=== PATIENT | male | born 1950 | race Caucasian/White ===

== ENCOUNTER 2022-03-19 23:09 | Outpatient (CLI) | payer MEDICARE, SELFPAY | END 2022-03-19 23:10 | disposition home or self-care (01) | LOC: AMB 03-21 11:58 | PROVIDERS: PCP Family Medicine; Visit Provider Family Medicine | DX: R11.2 Nausea with vomiting, unspecified (principal); R19.7 Diarrhea, unspecified | CPT/HCPCS: A0425; A0427 ==

== ENCOUNTER 2022-03-19 23:38 | Emergency (ER) | payer MEDICARE, SELFPAY ==
[2022-03-19 23:43] VITALS: BP 151/94; PULSE 60; RESP 16; TEMP 36.3; O2SAT 99; BMI 31.4
[2022-03-20] VITALS (8 sets, daily range): BP systolic 150–183; BP diastolic 84–94; PULSE 65–92; RESP 12–20; O2SAT 95–100
--- NOTE | 2022-03-20 00:09 | ED.NAVMDI ---
HPI - Nausea/Vomiting/Diarrhea General Chief complaint: Nausea/Vomiting Stated complaint: nausea/vomiting Time Seen by Provider: 03/20/22 00:00 History of Present Illness HPI Narrative: This was a challenging interview to try to sort out the symptoms. 72 year old man presenting with spouse. Apparently experienced an episode of lightheadedness yesterday evening. Sounds somewhat orthostatic on initial description. Asking then again later sounded to be while at rest and more like dizziness in that things were suddenly moving. Thing started up again today about 30 hours ago accompanied by vomiting and diarrhea though. Tonight then was contemplating getting up and coming in to the emergency department when while walking tipped off to his right. Ended up resting on the couch for EMS arrival. Says he is pretty lightheaded when goes to stand. No chest pain or shortness of breath. Further questioning later reveals however the course the day watching TV would just make him too dizzy. Closing eyes was better. History of smoking. Quit more than 15 years ago. Underlying history of diabetes. Related Data Home Medications Medication Instructions Recorded Confirmed atorvastatin 20 mg tablet 20 mg PO DAILY 03/19/22 03/19/22 levothyroxine 112 mcg tablet 112 mcg PO DAILY 03/19/22 03/19/22 metformin 500 mg tablet,extended 1,500 mg PO DAILY 03/19/22 03/19/22 release 24 hr Allergies Allergy/AdvReac Type Severity Reaction Status Date / Time metformin AdvReac Mild diarreha Verified 03/20/22 02:32 Review of Systems Status of ROS: Reports: 6 or more systems reviewed and unremarkable except as noted in History and below [facility] Medical History (Updated 03/20/22 @ 05:01 by Jesse Levi MD) DDD (degenerative disc disease) DJD (degenerative joint disease) External hemorrhoid Hypothyroidism Non-insulin dependent diabetes mellitus Surgical History History of back surgery History of right hip replacement History of tonsillectomy S/P appendectomy Social History Smoking Status: Former smoker Do you use any of these nicotine containing products: None Second hand tobacco smoke exposure: No How often do you have a drink containing alcohol: 2-3 times a week How many standard drinks containing alcohol do you have on a typical day: 3 or 4 AUDIT-C Alcohol total score: 4 Non-prescribed substance use: denies use service: No Exam Narrative: Exam Narrative: Pleasant. NAD. Head atraumatic. Breathing easily. Lungs are clear. Heart with regular rate and rhythm and without MRG. Abdomen overweight. soft. nt. CN 2-12 intact and no apparent sensory loss. Moving all extremities without difficulty and with good strength and well-perfused peripherally. No extremity edema. No nystagmus evident. rotational movement of the head with maybe mild reproduction of dizziness. Recheck with fairly accurate [id number]. Once up and going to the bathroom is demonstrating an ataxic gait somewhat broad-based. Apparently this is new. Says he feels a lot better though. Const: Vital Signs, click to edit/add: Vital Signs - 24 hr 03/19/22 23:43 03/20/22 00:00 03/20/22 00:30 Temperature 97.3 F L Pulse Rate [Left P ulse Oximeter] 60 65 73 Respiratory Rate 16 13 12 Blood Pressure [Ri ght Upper Arm] 151/94 H 150/91 H 160/84 H Pulse Oximetry 99 96 98 Oxygen Delivery Me thod Room Air Room Air Room Air 03/20/22 01:00 03/20/22 01:30 03/20/22 02:04 Temperature Pulse Rate [Left P ulse Oximeter] 82 86 92 Respiratory Rate 13 14 20 Blood Pressure [Ri ght Upper Arm] 169/86 H 163/90 H 180/88 H Pulse Oximetry 100 95 98 Oxygen Delivery Me thod Room Air Room Air Room Air 03/20/22 02:30 03/20/22 03:00 03/20/22 03:30 Temperature Pulse Rate [Left P ulse Oximeter] 89 87 82 Respiratory Rate 19 15 15 Blood Pressure [Ri ght Upper Arm] 183/93 H 162/94 H 165/92 H Pulse Oximetry 99 97 97 Oxygen Delivery Me thod Room Air Room Air Room Air Documenting provider has reviewed patient's vital signs: yes Course Vital Signs Vital signs: Initial Vital Signs Temperature 97.3 F L 03/19/22 23:43 Temperature Source Temporal Artery Scan 03/19/22 23:43 Pulse Rate 60 03/19/22 23:43 Respiratory Rate 16 02/04/23 23:43 Blood Pressure 151/94 H 03/19/22 23:43 Blood Pressure Mean 113 03/19/22 23:43 Blood Pressure Position Semi-Fowlers 03/19/22 23:43 Pulse Oximetry 99 03/19/22 23:43 Oxygen Delivery Method 03/19/22 23:43 Vital Signs Temperature 97.3 F L 03/19/22 23:43 Pulse Rate 60 03/19/22 23:43 Respiratory Rate 16 03/19/22 23:43 Blood Pressure 151/94 H 03/19/22 23:43 Pulse Oximetry 99 03/19/22 23:43 Oxygen Delivery Method 03/19/22 23:43 Temperature 97.3 F L 03/19/22 23:43 Pulse Rate 82 03/20/22 03:30 Respiratory Rate 15 03/20/22 03:30 Blood Pressure 165/92 H 03/20/22 03:30 Pulse Oximetry 97 03/20/22 03:30 Oxygen Delivery Method 03/20/22 03:30 MDM - Nausea/Vomiting/Diarrhea MDM Narrative Medical decision making narrative: IV initiated with vomiting symptoms with some diarrhea; the latter reassuring. Zofran as well. Still with some dizziness, ordered for Valium. After treatment, asymptomatic at rest but says that balance is off otherwise when ambulating to and from the bathroom. Somewhat ataxic or broad-based gait which apparently is new. Hints positive both directions. No nystagmus With this description of balance being off I do think it would be prudent to image with CT/CTA of head and neck as available at this time. I did review these images and and discussed them with Neurology. Overall reassuring though there was a question of spot of hypodensity in a location unrelated to symptoms. Perhaps more concerning is this ataxia. Recommendations for followup MRI brain, consider hospitalizaton only due to difficulty with ambulation. Mr. Marley mantains that he feels rather well now and and intends to go home. Dosed with ASA and to continue pending follow up MRI result. Will try to arrange imaging. Lab Data Attestation: I reviewed the patient's lab results. Labs: Lab Results 03/20/22 03/20/22 03/20/22 Range/Units 00:25 00:25 00:25 WBC 7.04 (4.50-11.00) K/uL RBC 4.58 (4.30-5.90) m/uL Hgb 14.3 (13.5-17.5) gm/dL Hct 41.8 (37.0-53.0) % MCV 91 (80-100) fL MCH 31 (26-34) pg MCHC 34 (32-36) gm/dL RDW Coeff of Jono 12.5 (11.5-15.5) % Plt Count 159 (140-440) K/uL Neut % (Auto) 81.9 H (42.0-72.0) % Lymph % (Auto) 11.1 L (20-44) % [place] % (Auto) 6.4 (0.0-11.0) % Eos % (Auto) 0.0 (0.0-7.0) % Baso % (Auto) 0.3 (0.0-3.0) % Neut # (Auto) 5.80 (1.7-7.0) K/uL Lymph # (Auto) 0.80 L (0.90-2.90) K/uL [place] # (Auto) 0.50 (0.00-0.90) K/UL Eos # (Auto) 0.00 (0.00-0.50) K/uL Baso # (Auto) 0.02 (0.00-0.30) K/uL Sodium 142 (135-149) mmol/L Potassium 4.2 (3.6-5.1) mmol/L Chloride 106 (96-114) mmol/L Carbon Dioxide 24 (20-32) mmol/L BUN 19 (7-30) mg/dL Creatinine 0.7 (0.5-1.5) mg/dL Estimated Creat Clear 70.07 Estimated GFR 97 ml/min Glucose 246 H (60-115) mg/dL Calcium 9.3 (8.4-10.6) mg/dL Magnesium (1.5-2.6) mg/dL Total Bilirubin (0.1-1.5) mg/dL Direct Bilirubin (0.0-0.5) mg/dL AST (12-35) U/L ALT (4-50) U/L Alkaline Phosphatase (40-150) U/L Troponin I (0.01-0.04) ng/mL C-Reactive Protein 0.5 (0.5-1.0) mg/dL NT-Pro-B Natriuret Pep pg/mL Total Protein (6.0-8.3) g/dL Albumin (3.3-5.0) g/dL Urine Color (Yellow) Urine Appearance (Clear) Urine pH (5.0-8.5) Ur Specific [place] (1.000-1.030) Urine Protein (Negative) Urine Glucose (UA) (Negative) Urine Ketones (Negative) Urine Blood (Negative) Urine Nitrite (Negative) Urine Bilirubin (Negative) Urine Urobilinogen (0.2-1.0) Ur Leukocyte Esterase (Negative) Urine RBC (0-2) Urine WBC (0-5) Ur Squamous Epith Cells (None-Few) Urine Bacteria (None) Ethyl Alcohol (0.01-0.03) % SARS-CoV-2 (PCR) Negative SARS-CoV-2 (Negative) Influenza Type A (PCR) Negative PCR FLU A (Negative) Influenza Type B (PCR) Negative PCR FLU B (Negative) 03/20/22 03/20/22 Range/Units 00:25 02:00 WBC (4.50-11.00) K/uL RBC (4.30-5.90) m/uL Hgb (13.5-17.5) gm/dL Hct (37.0-53.0) % MCV (80-100) fL MCH (26-34) pg MCHC (32-36) gm/dL RDW Coeff of Jono (11.5-15.5) % Plt Count (140-440) K/uL Neut % (Auto) (42.0-72.0) % Lymph % (Auto) (20-44) % [place] % (Auto) (0.0-11.0) % Eos % (Auto) (0.0-7.0) % Baso % (Auto) (0.0-3.0) % Neut # (Auto) (1.7-7.0) K/uL Lymph # (Auto) (0.90-2.90) K/uL [place] # (Auto) (0.00-0.90) K/UL Eos # (Auto) (0.00-0.50) K/uL Baso # (Auto) (0.00-0.30) K/uL Sodium (135-149) mmol/L Potassium (3.6-5.1) mmol/L Chloride (96-114) mmol/L Carbon Dioxide (20-32) mmol/L BUN (7-30) mg/dL Creatinine (0.5-1.5) mg/dL Estimated Creat Clear Estimated GFR ml/min Glucose (60-115) mg/dL Calcium (8.4-10.6) mg/dL Magnesium 1.7 (1.5-2.6) mg/dL Total Bilirubin 0.9 (0.1-1.5) mg/dL Direct Bilirubin 0.1 (0.0-0.5) mg/dL AST 26 (12-35) U/L ALT 30 (4-50) U/L Alkaline Phosphatase 70 (40-150) U/L Troponin I < 0.01 L (0.01-0.04) ng/mL C-Reactive Protein (0.5-1.0) mg/dL NT-Pro-B Natriuret Pep 117 pg/mL Total Protein 6.8 (6.0-8.3) g/dL Albumin 4.4 (3.3-5.0) g/dL Urine Color Yellow (Yellow) Urine Appearance Clear (Clear) Urine pH 6.0 (5.0-8.5) Ur Specific [place] >= 1.030 (1.000-1.030) Urine Protein Trace A (Negative) Urine Glucose (UA) 2+ A (Negative) Urine Ketones 1+ A (Negative) Urine Blood Negative (Negative) Urine Nitrite Negative (Negative) Urine Bilirubin Negative (Negative) Urine Urobilinogen 0.2 (0.2-1.0) Ur Leukocyte Esterase Negative (Negative) Urine RBC 2-5 A (0-2) Urine WBC 2-5 (0-5) Ur Squamous Epith Cells None (None-Few) Urine Bacteria None (None) Ethyl Alcohol < 0.01 L (0.01-0.03) % SARS-CoV-2 (PCR) (Negative) Influenza Type A (PCR) (Negative) Influenza Type B (PCR) (Negative) ECG Data Attestation: I personally reviewed and interpreted this ECG as follows: (Sinus bradycardia rate of 53. RBBB looks to be apparent) Discharge Plan Discharge Clinical Impression: Dizziness, Ataxia, Gastroenteritis Patient Disposition: Home w/ Parent or Adult Condition: Improved Instructions: Gastroenteritis (ED), Dizziness (ED) Additional Instructions: Was a pleasure taking care of you. I would focus on hydration. Slow advance of diet over the next 24-36 hours. Diluted juices and soup broths to thicker soups and smoothies. Rice. [place]. Zofran for nausea from [facility] if you like. I understand that you would prefer to go home this morning. Recommendations are to take 81 mg of aspirin daily. This would be modified upon what we see in this MRI of the brain. I would anticipate you receiving a call from our Radiology Department in the morning on Monday to try to get this MRI accomplished soon as possible. In the meantime return for new and focal weakness, intractable vomiting, worsening difficulty walking, difficulty speaking or frankly anything that seems like worsening stroke symptoms. Prescriptions: No Action atorvastatin 20 mg tablet 20 mg PO DAILY Label Comments: Take 1 Tablet (20 mg) by mouth once daily with evening meal. levothyroxine 112 mcg tablet 112 mcg PO DAILY Label Comments: Take 1 Tablet (112 mcg) by mouth before breakfast. metformin 500 mg tablet extended release 24 hr 1,500 mg PO DAILY Label Comments: Take 3 Tablets (1,500 mg) by mouth once daily with evening meal. Follow Up/Referrals: Celestine Eden MD [Primary Care Provider] - Stand Alone Forms: [employer] Info Instructions
[2022-03-20 00:33] LABS: Basophils Absolute Auto 0.02 K/uL (0.00-0.30); Basophils Percent Auto 0.3 % (0.0-3.0); Hematocrit 41.8 % (37.0-53.0); Hemoglobin* 14.3 gm/dL (13.5-17.5); Immature Granulocytes Abs Auto 0.02 K/uL (0.00-0.30); Immature Granulocytes Pct Auto 0.3 %; Lymphocytes Percent Auto 11.1 % (20-44); Mean Corpuscular HGB Conc 34 gm/dL (32-36); Mean Corpuscular Hemoglobin 31 pg (26-34); Mean Corpuscular Volume 91 fL (80-100); Monocytes Percent Auto 6.4 % (0.0-11.0); Neutrophils Percent Auto 81.9 % (42.0-72.0); Platelet Count* 159 K/uL (140-440); RDW Coefficient of Variation % 12.5 % (11.5-15.5); Red Blood Count 4.58 m/uL (4.30-5.90); White Blood Count* 7.04 K/uL (4.50-11.00)
[2022-03-20 00:35] LABS: Slide Review Reflex No
[2022-03-20] MEDS: 0.9 % SODIUM CHLORIDE 1000 ml 1,000 ML IV (00:35)
--- NOTE | 2022-03-20 00:37 | ED.NURSE ---
Orthostatic BP supine 160/84, HR 70 sitting 158/88, HR 63 Stand 169/86, HR 56
[2022-03-20] MEDS: PROMETHAZINE 25 MG/ML INJ 12.5 MG IVP (00:54)
[2022-03-20 00:59] LABS: Albumin* 4.4 g/dL (3.3-5.0)
[2022-03-20 01:00] LABS: Chloride* 106 mmol/L (96-114); Potassium* 4.2 mmol/L (3.6-5.1); Sodium* 142 mmol/L (135-149)
[2022-03-20 01:02] LABS: Alanine Aminotransferase* 30 U/L (4-50); Alkaline Phosphatase* 70 U/L (40-150); Aspartate Amino Transferase* 26 U/L (12-35); Bilirubin Direct* 0.1 mg/dL (0.0-0.5); Bilirubin Total* 0.9 mg/dL (0.1-1.5); Magnesium* 1.7 mg/dL (1.5-2.6); Total Protein* 6.8 g/dL (6.0-8.3)
[2022-03-20 01:03] LABS: Creatinine* 0.7 mg/dL (0.5-1.5); Est. Creatinine Clearance* 70.07; Estimated Glomerular Filt Rate 97 ml/min
[2022-03-20 01:04] LABS: Blood Urea Nitrogen* 19 mg/dL (7-30); Calcium* 9.3 mg/dL (8.4-10.6); Carbon Dioxide* 24 mmol/L (20-32); Ethanol* < 0.01 % (0.01-0.03); Glucose* 246 mg/dL (60-115)
[2022-03-20 01:07] LABS: C Reactive Protein* 0.5 mg/dL (0.5-1.0)
[2022-03-20 01:11] LABS: NT Pro B Type NatriureticPept* 117 pg/mL
[2022-03-20 01:12] LABS: PCR FLU A Negative PCR FLU A (Negative); PCR FLU B Negative PCR FLU B (Negative); SARS PCR* Negative SARS-CoV-2 (Negative); Troponin I* < 0.01 ng/mL (0.01-0.04)
--- NOTE | 2022-03-20 02:05 | CRLHL7_ITS ---
For Patients: As a result of the Century Cures Act, medical imaging exams and procedure reports are released immediately into your electronic medical record. You may view this report before your referring provider. If you have questions, please contact your health care provider. DATE: 03/20/2022. CLINICAL HISTORY: Dizzy; imbalance. TECHNIQUE: Standard helical CT image acquisition through the head and neck following the administration of intravenous contrast was performed. Multiplanar reconstructed images performed on a separate workstation. COMPARISON: None available. FINDINGS: The great vessels are patent. The common carotid arteries are patent. The proximal ICAs are patent without signficant stenoses by NASCET criteria. The more distal cervical ICAs are patent. The origins of the vertebral arteries are patent. The cervical segments of the vertebral arteries are patent. The petrous, cavernous, and supraclinoid segments of the internal carotid arteries are patent. The anterior and middle cerebral arteries are patent. The anterior communicating artery is visualized and is within normal limits. The intracranial vertebral arteries, basilar trunk, and posterior cerebral arteries are patent. No intracranial proximal large vessel occlusion or flow-limiting luminal stenosis. No evidence of cerebral aneurysm. No findings to suggest an arterial-venous shunting lesion. IMPRESSION: 1. No intracranial proximal large vessel occlusion or flow-limiting luminal stenosis. 2. Patent cervical arterial vasculature without hemodynamically significant luminal stenosis. Please note that all CT scans at this facility use dose modulation, iterative reconstruction, and/or weight-based dosing when appropriate to reduce radiation dose to as low as reasonably achievable. Dictated by Enrrique Astorga MD @ 03/20/2022 11:11:34 AM (Electronically Signed)
--- NOTE | 2022-03-20 02:05 | CRLHL7_ITS ---
For Patients: As a result of the Century Cures Act, medical imaging exams and procedure reports are released immediately into your electronic medical record. You may view this report before your referring provider. If you have questions, please contact your health care provider. INDICATION: Dizziness. Imbalance. COMPARISON: None available. TECHNIQUE: CT examination of the head was performed with 3 mm thick axial and 2 mm thick coronal and sagittal sections without intravenous contrast. Images were obtained from the vertex of the skull through the skull base, and I examined the images with the brain and bone windows. Please note that all CT scans at this facility use dose modulation, iterative reconstruction, and/or weight-based dosing when appropriate to reduce radiation dose to as low as reasonably achievable. FINDINGS: : There is moderate dilatation of the ventricles and sulci representing age-appropriate atrophy. There is mild periventricular and subcortical white matter hypodensity representing age-appropriate small vessel ischemia. There is also some mild cerebellar atrophy. The brain is otherwise normal in appearance for the patient`s age on today`s study, with no sign of mass lesion, mass effect, hemorrhage, or edema. The visualized portions of the orbits are normal in appearance status post cataract surgery. The visualized portions of the paranasal sinuses and mastoids are clear. The osseous structures are normal in their appearance with no sign of abnormality in the skull base or calvarium. IMPRESSION: No sign of acute injury to the brain. Moderate, age-appropriate cerebral atrophy and mild, age-appropriate small-vessel ischemic change. Mild cerebellar atrophy. Please note that all CT scans at this facility use dose modulation, iterative reconstruction, and/or weight-based dosing when appropriate to reduce radiation dose to as low as reasonably achievable. Dictated by Steven Mak MD @ 03/20/2022 2:53:07 AM (Electronically Signed)
[2022-03-20 02:10] LABS: Appearance Urine Clear (Clear); Bilirubin Urine Negative (Negative); Blood Urine Negative (Negative); Color Urine Yellow (Yellow); Glucose Urine 2+ (Negative); Ketones Urine 1+ (Negative); Leukocyte Esterase Urine Negative (Negative); Nitrite Urine Negative (Negative); Protein Urine Trace (Negative); Specific Gravity Urine >= 1.030 (1.000-1.030); Urobilinogen Urine 0.2 (0.2-1.0)
[2022-03-20] MEDS: diazePAM 5 MG/ML inj IV (03:10)
[2022-03-20] MEDS: ASPIRIN EC 325 MG TABLET PO (05:23)
== END 2022-03-20 05:22 | disposition home or self-care (01) ==
PROVIDERS: Emergency Provider Family Medicine; PCP Family Medicine
DX: R42 Dizziness and giddiness (principal); R27.0 Ataxia, unspecified; K52.9 Noninfective gastroenteritis and colitis, unspecified
CPT/HCPCS: 36415; 70450; 70496; 70498; 80048; 80076; 81001; 82077; 83735; 83880; 84484; 85025; 86140; 87631; 93005; 96374; 96375; 99284; 99285; A9270; J2550; J3360; J7030; Q9967

== ENCOUNTER 2022-03-22 14:25 | Outpatient (CLI) | payer MEDICARE, SELFPAY ==
--- NOTE | 2022-03-22 15:00 | CRLHL7_ITS ---
For Patients: As a result of the Century Cures Act, medical imaging exams and procedure reports are released immediately into your electronic medical record. You may view this report before your referring provider. If you have questions, please contact your health care provider. INDICATION: Dizziness. TECHNIQUE: Brain MRI without contrast. The following sequences were obtained: Sagittal T1 weighted sequence. DWI and ADC mapping sequences. Axial FLAIR and BIJAN T2 weighted sequences. Susceptibility or GRE sequence. COMPARISON: Head CT from 03/20/2022. FINDINGS: No evidence of acute ischemia. No evidence of acute or chronic intracranial blood products. Patchy FLAIR hyperintensities within the supratentorial white matter and brainstem, typical for chronic microvascular ischemic change. Overall [id number] generalized parenchymal volume loss. No mass effect or herniation. No hydrocephalus or extra-axial collections. The pituitary gland, parasellar structures and optic chiasm are normal. Posterior fossa is normal. All the major intracranial vascular structures demonstrate normal flow-related signal. The orbital contents are normal. No calvarial or skull base marrow replacing process. No obstructive sinus disease. No extracranial soft tissue findings. IMPRESSION: 1. No acute infarction or other acute intracranial pathology. 2. Mild chronic microvascular ischemic changes within the supratentorial white matter and brainstem. Dictated by Clifford Vivas MD @ 03/22/2022 5:57:59 PM (Electronically Signed)
== END 2022-03-22 14:26 | disposition home or self-care (01) ==
PROVIDERS: PCP Family Medicine; Visit Provider Family Medicine
DX: R42 Dizziness and giddiness (principal); I67.82 Cerebral ischemia
CPT/HCPCS: 70551

== ENCOUNTER 2022-11-21 09:15 | Outpatient (RCR) | payer MEDICARE, SELFPAY ==
--- NOTE | 2022-10-31 11:50 | PT.OPEX ---
PT [place] Outpatient Eval PT 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 HE C/O PAIN GREATEST IN THE MORNING BUT NOT EVERY MORNING. OVERALL, HE HAS REPORTS THIS LEFT HIP PAIN FOR THE LAST COUPLE OF YEARS BUT HAS JUST PUSHED THROUGH B/C I'VE WORKED HARD ALL MY LIFE. Pain Comments 0 TODAY AND AT REST WITH UPWARDS OF 6-8/10 WHEN EXACERBATED. Date of Last Physician Visit 10/06/22 Current Work Status Retired Preferred Name NAVEEN Precautions Treatment Precautions/Contraindications DMII, RIGHT FRANCISCO JAVIER >5YRS AGO Therapy Limitations/Systems Review Not Limited Objective Other/Pertinent Objective Posture Assessment: FLAT LORDOTIC CURVATURE LUMBAR ROM Flexion: TOP OF KNEES repeated flexion: INCREASED DISCOMFORT BUT NOT PAIN. Extension: NEGLIGIBLE repeated ext: STIFF BUT NO PAIN Right Sidebend: TO KNEE; STIFF Left Sidebend: TO KNEE; STIFF LE MMT Hip flexion: R 5/5 L 5/5 Hip Extension: R 4+/5 L 4+/5 Hip abduction: R 4+/5 L 4+/5 knee extension: R 5/5 L 5/5 Knee Flexion: R 5/5 L 5/5 Dorsiflexion/heel walk: R 5/5 L 5/5 Plantarflexion/toe walk:R 5/5 L 5/5 Great Toe Extension: R 5/5 L 5 /5 JOINT MOBILITY/PALPATION: MIN GLUT MED DISCOMFORT; HYPOMOBILITY NOTED THROUGHOUT THE LUMBAR SPINE SPECIAL TESTS Straight leg raise: (-) Crossed straight leg raise: (- ) Slump test: (-) SI/HIPI tests MAKENNA (+) FADIR (+) SCOUR (-) Gillet Test: (+) Standing forward bend Test: (- ) Gapping and Compression test: (-) TX: SUPINE TRUNK ROTATION R/L 3 X15 SEC SUPINE FIGURE 4 R/L 3X 15 SEC SUPINE PIRIFORMIS R/L 3 X 15 SEC SUPINE BRIDGE X 10 HOLD 3 SEC SIDELYING CLAM R/L X 10 Assessment Assessment/Impression PATIENT IS A [address] HERNANDES TO EVAL AND TREAT LUMBAR RADICULOPATHY; PMHX INCLUDES BUT NOT LIMITED DMII, H/O LUMBAR SURGERY > 20YRS AGO, RIGHT FRANCISCO JAVIER >5YRS AGO , DDD, DJD, HYPOTHYROIDISM, H/ O VERTIGO (03/2022). PATIENT C/ O INTERMITTENT LEFT HIP PAIN THAT IMPROVES WITH REST AND INCREASES WITH WALKING, STAIRS , AND PAIN OFTEN FIRST IN THE MORNING. PATIENT DEMONSTRATES POOR FLEXIBILITY WITH BILATERAL HAMSTRING TIGHTNESS, PIRIFORMIS AND LUMBAR MUSCULATURE. HE PRESENTS WITH A FLAT LUMBAR CURVATURE WITH FWD TRUNK FLEX TO TOP OF KNEES AND NEGLIGIBLE TRUNK EXT W/O COMPENSATION. THERE WERE NO S/ S OF NEUROLOGICAL INVOLVEMENT TODAY WITH PATIENT DENYING ANYTHING OTHER THAN MECHANICAL LBP AND HIP PAIN RELATED TO USE. HE IS APPROPRIATE FOR SKILLED PHYSICAL THERAPY TO ADDRESS FLEXIBILITY, BLE/CORE STRENGTHENING, AND FUNCTIONAL MOBILITY. PATIENT PERFORMED AND PROVIDED A WRITTEN HEP TO BEGIN WITH AND WILL ADD ADDITIONAL STRENGTHENING AND FLEXIBILITY EXERCISES NEXT VISIT. PATIENT VERBALIZED UNDERSTANDING TO ALL SKILLED INSTRUCTION. Primary Functional Limitations WALKING FOR EXERCISE BENDING STOOPING PROLONGED STDG Plan of Care Rehabilitation Potential Good Physical Therapy Goals IN 4-6 WEEKS: 1. PATIENT WILL DEMONSTRATE IMPROVED FLEXIBILITY TO WFL TO IMPROVE GAIT, BODY MECHANICS AND ASCENDING / DESCENDING ON STEPS WITH RECIPROCAL GAIT 2. PATIENT WILL IMPROVE PAIN AT IT'S WORST TO </3/10 WITH DAILY CHORES, YARD/GARAGE PROJECTS AND WITH THE PROGRESSION OF HIS HEP. 3. PATIENT WILL IMPROVE CORE AND BLE STRENGTH TO RETURN TO NORMAL GAIT FOR COMMUNITY AMB W/O AN EXACERBATION OF SYMPTOMS. 4. PATIENT WILL DEMONSTRATE INDEPENDENCE WITH HIS AND THE ABILITY TO PROGRESS FOR CONTINUED IMPROVEMENT. Coordination/Communication With Referral Source Treatment Plan/Direct Interventions Gait Training,Heat,Ice/Cold/ Vasopneumatic,Joint Mobilization,Manual Therapy, Neuromuscular Re-ed, Therapeutic Activities, Therapeutic Exercises Patient Will Be Discharged From Therapy Completion of LTG(s), Independently Progressing Evaluation Billing Untimed Code Treatment Minutes 20 PT Eval No Charge No Complexity Moderate Certification Information Initial Certification Date 10/31/22 Ending Certification Date 01/28/23 Provider Signature Shows Agreement With POC & Medical Necessity Physician Signature & Date Requested Please Sign/Date Here Physician Comment/Change : Physician NPI Number #
== END 2023-03-21 23:59 | disposition home or self-care (01) ==
PROVIDERS: PCP Family Medicine; Visit Provider Family Medicine
DX: M54.16 Radiculopathy, lumbar region (principal); M25.552 Pain in left hip; M25.60 Stiffness of unspecified joint, not elsewhere classified; Z51.89 Encounter for other specified aftercare
CPT/HCPCS: 97110; 97162